=== PATIENT | male | born 1955 | race Caucasian/White ===

== ENCOUNTER 2017-10-09 08:51 | Day surgery (SDC) | payer MEDICARE, MEDICAID ==
[2017-10-09] MEDS ORDERED: Lactated Ringer's 1,000 ML IV SCH (10:15)
[2017-10-09] MEDS ORDERED: Lidocaine Hydrochloride 5 ML INJ ONE (10:37)
[2017-10-09] MEDS ORDERED: Propofol 10 mg/ml Inj (20 ML) ONE ×4 (10:37→11:38)
[2017-10-09 12:15] VITALS: TEMP 97
[2017-10-09 12:42] VITALS: O2SAT 99
[2017-10-09 12:47] VITALS: BP 121/78; PULSE 79; RESP 18
== END 2017-10-09 13:10 | disposition home or self-care (01) ==
LOC: C.ENDO 08:51
PROVIDERS: ATTEND Internal Medicine Gastroenterology
DX: K29.50 Unspecified chronic gastritis without bleeding (principal); D12.2 Benign neoplasm of ascending colon; D12.4 Benign neoplasm of descending colon; D12.5 Benign neoplasm of sigmoid colon; K74.60 Unspecified cirrhosis of liver; K64.1 Second degree hemorrhoids; Z87.19 Personal history of other diseases of the digestive system; E78.5 Hyperlipidemia, unspecified; I10 Essential (primary) hypertension; F17.210 Nicotine dependence, cigarettes, uncomplicated
CPT/HCPCS: 43239; 45381; 45385; 88305; 88342; J2704; J7120